=== PATIENT | male | born 1965 | race Hispanic/Latino ===

== ENCOUNTER 2022-06-23 08:01 | Emergency (ER) | payer SELFPAY | END 2022-06-23 10:08 | disposition home or self-care (01) | LOC: ERS 08:01 | DX: S00.83XA Contusion of other part of head, initial encounter (principal); M26.30 Unspecified anomaly of tooth position of fully erupted tooth or teeth; Y04.8XXA Assault by other bodily force, initial encounter | CPT/HCPCS: 70450; 70486 ==

== ENCOUNTER 2022-10-03 10:50 | Inpatient (IN) | payer SELFPAY ==
[2022-10-03 11:34] LABS: #Eosinphils 0.9 thou/uL (0.0-0.7); #Lymphocytes 1.8 thou/uL (1.20-3.40); #Monocytes 0.7 thou/uL (0.11-0.59); #Neutrophils 7.8 thou/uL (1.40-6.50); %Basophils 0.4 % (0.0-1.0); %Eosinophils 8.2 % (0.0-10.0); %Lymphocytes 16.1 % (21.0-51.0); %Monocytes 5.9 % (0.0-10.0); %Neutrophils 69.4 % (42.0-75.0); Hemoglobin 13.3 g/dL (14.0-18.0); Mean Corpuscular HGB CONC 32.6 g/dL (32.0-36.0); Mean Corpuscular Hemoglobin 30.4 pg (27.0-31.0); Mean Corpuscular Volume 93.3 fl (78.0-98.0); Platelet Count 358 10x3/uL (130-400); RBC Distribution Width 11.7 % (11.5-14.5); Red Blood Cell (RBC) Count 4.38 mill/uL (4.70-6.10); White Blood Cell (WBC) Count 11.3 10x3/uL (4.8-10.8)
[2022-10-03 11:54] LABS: ALT (SGPT) 14 U/L (8-55); AST (SGOT) 14 U/L (5-34); Albumin 3.9 g/dL (3.5-5.0); Alkaline Phosphatase 79 U/L (40-110); Anion Gap 14 mmol/L (10-20); BUN (Urea Nitrogen) 15 mg/dL (8.4-25.7); Bilirubin, Total 0.8 mg/dL (0.2-1.2); Calc. Creatinine Clearance 0 mL/min (70-130); Calcium 9.4 mg/dL (7.8-10.44); Carbon Dioxide 24 mmol/L (22-29); Chloride 101 mmol/L (98-107); Estimated GFR 105; Globulin 3.9 g/dL (2.4-3.5); Glucose 184 mg/dL (70-105); Protein, Total 7.8 g/dL (6.0-8.3); Sodium 135 mmol/L (136-145)
[2022-10-03] MEDS ORDERED: Clindamycin/D5W 900 mg/50 ml Premix Bag ONE (13:37)
[2022-10-03 14:01] LABS: Hemoglobin A1c 8.2 % (4.0-6.0)
[2022-10-03] MEDS ORDERED: HumaLOG 300 UNITS/3 ML VIAL SC PRN (14:04)
[2022-10-03] MEDS ORDERED: Dextrose 50% Abboject 50 ML SYRINGE SLOW IVP PRN (14:04)
[2022-10-03] MEDS ORDERED: Dextrose 5% in Water 1,000 ML IV PRN (14:04)
[2022-10-03] MEDS ORDERED: Cefepime 2 GM VIAL ONE (14:19)
[2022-10-03 15:13] VITALS: BMI 26.4
[2022-10-03] MEDS ORDERED: Vancomycin 1.5 GRAM/300 ML BAG 1.5 GM in Premix Bag 1 BAG IVPB SCH (15:15)
[2022-10-03 15:26] LABS: Cardiac Risk 2.8 (Less than 4.5)
[2022-10-03] MEDS ORDERED: Boostrix 0.5 ML (Tdap) VIAL (>/=7 yrs of age) IM ONE (15:26)
[2022-10-03] MEDS ORDERED: PNEUMOC 20-VAL CONJ-DIP CRM/PF 0.5 ML SYRINGE IM ONE (15:28)
[2022-10-03] MEDS: Sodium Chloride 0.9% 1,000 ML IV SCH (19:27)
[2022-10-03] MEDS: Rosuvastatin 20 MG TAB PO SCH (21:20)
[2022-10-03] MEDS: Acetaminophen 325 MG TAB PO PRN (22:26)
[2022-10-04] MEDS: Cefepime 2 GM in Sodium Chloride 0.9% 100 ML IVPB SCH ×2 (02:30→14:50)
[2022-10-04] MEDS: Sodium Chloride 0.9% 1,000 ML IV SCH ×2 (03:00→15:32)
[2022-10-04] MEDS: Vancomycin 1 GM in Premix Bag 1 BAG IVPB SCH ×2 (05:23→17:34)
[2022-10-04 07:53] LABS: #Basophils 0.1 thou/uL (0.0-0.2); #Eosinphils 0.8 thou/uL (0.0-0.7); #Lymphocytes 1.6 thou/uL (1.20-3.40); #Monocytes 0.8 thou/uL (0.11-0.59); #Neutrophils 7.7 thou/uL (1.40-6.50); %Basophils 0.5 % (0.0-1.0); %Eosinophils 7.1 % (0.0-10.0); %Lymphocytes 14.7 % (21.0-51.0); %Monocytes 6.9 % (0.0-10.0); %Neutrophils 70.9 % (42.0-75.0); Hemoglobin 12.5 g/dL (14.0-18.0); Mean Corpuscular HGB CONC 33.1 g/dL (32.0-36.0); Mean Corpuscular Hemoglobin 30.8 pg (27.0-31.0); Mean Corpuscular Volume 93.2 fl (78.0-98.0); Platelet Count 325 10x3/uL (130-400); RBC Distribution Width 11.5 % (11.5-14.5); Red Blood Cell (RBC) Count 4.06 mill/uL (4.70-6.10); White Blood Cell (WBC) Count 10.9 10x3/uL (4.8-10.8)
[2022-10-04 08:06] LABS: Anion Gap 12 mmol/L (10-20); BUN (Urea Nitrogen) 13 mg/dL (8.4-25.7); Calc. Creatinine Clearance 110 mL/min (70-130); Carbon Dioxide 22 mmol/L (22-29); Chloride 104 mmol/L (98-107); Estimated GFR 106; Glucose 161 mg/dL (70-105); Potassium 3.6 mmol/L (3.5-5.1); Sodium 134 mmol/L (136-145)
[2022-10-04] MEDS: metFORMIN 500 MG TAB PO SCH (17:34)
[2022-10-04] MEDS: Rosuvastatin 20 MG TAB PO SCH (20:08)
[2022-10-04] MEDS: Acetaminophen 325 MG TAB PO PRN (20:09)
[2022-10-05] MEDS: Sodium Chloride 0.9% 1,000 ML IV SCH ×2 (01:13→13:57)
[2022-10-05] MEDS: Cefepime 2 GM in Sodium Chloride 0.9% 100 ML IVPB SCH ×2 (01:13→15:40)
[2022-10-05 05:46] LABS: #Basophils 0.1 thou/uL (0.0-0.2); #Eosinphils 0.9 thou/uL (0.0-0.7); #Lymphocytes 2.1 thou/uL (1.20-3.40); #Monocytes 0.7 thou/uL (0.11-0.59); #Neutrophils 7.4 thou/uL (1.40-6.50); %Basophils 0.5 % (0.0-1.0); %Eosinophils 8.1 % (0.0-10.0); %Lymphocytes 18.7 % (21.0-51.0); %Monocytes 5.9 % (0.0-10.0); %Neutrophils 66.8 % (42.0-75.0); Hemoglobin 12.5 g/dL (14.0-18.0); Mean Corpuscular Hemoglobin 30.3 pg (27.0-31.0); Mean Platelet Volume 7.1 fL (7.4-10.4); Platelet Count 308 10x3/uL (130-400); RBC Distribution Width 11.5 % (11.5-14.5); Red Blood Cell (RBC) Count 4.12 mill/uL (4.70-6.10); White Blood Cell (WBC) Count 11.1 10x3/uL (4.8-10.8)
[2022-10-05 06:05] LABS: Vancomycin, Trough 7.5 ug/mL
[2022-10-05 06:09] LABS: Anion Gap 13 mmol/L (10-20); BUN (Urea Nitrogen) 15 mg/dL (8.4-25.7); Calc. Creatinine Clearance 106 mL/min (70-130); Carbon Dioxide 21 mmol/L (22-29); Chloride 106 mmol/L (98-107); Estimated GFR 105; Glucose 140 mg/dL (70-105); Potassium 3.5 mmol/L (3.5-5.1); Sodium 136 mmol/L (136-145)
[2022-10-05] MEDS: Vancomycin 1 GM in Premix Bag 1 BAG IVPB SCH ×2 (06:25→06:47)
[2022-10-05] MEDS ORDERED: Vancomycin 1 GM/200 ML (FROZEN) BAG ONE (10:56)
[2022-10-05] MEDS ORDERED: Vancomycin (BATCH) 1.5 GRAM/300 ML BAG ONE (11:03)
[2022-10-05] MEDS: Vancomycin 1.5 GRAM/300 ML BAG 1.5 GM in Premix Bag 1 BAG IVPB SCH ×2 (11:08→20:07)
[2022-10-05] MEDS ORDERED: fentaNYL PF 100 MCG/2 ML SYRINGE ONE ×2 (11:59→13:18)
[2022-10-05] MEDS ORDERED: PROPOFOL 200 MG/20 ML VIAL ONE (12:05)
[2022-10-05] MEDS ORDERED: Dexamethasone 20 MG/5 ML VIAL ONE (12:05)
[2022-10-05] MEDS ORDERED: ePHEDrine 50 MG/ML VIAL ONE (12:05)
[2022-10-05] MEDS ORDERED: Lidocaine 1% PF 5 ML VIAL ONE (12:05)
[2022-10-05] MEDS ORDERED: Ondansetron PF 4 MG/2 ML Vial ONE (12:05)
[2022-10-05] MEDS ORDERED: Acetaminophen 500 MG TAB PO PRN (12:42)
[2022-10-05] MEDS ORDERED: Acetaminophen 500 MG TAB PO SCH (13:45)
[2022-10-05] MEDS: Losartan 25 MG TAB PO SCH (15:38)
[2022-10-05] MEDS: metFORMIN 500 MG TAB PO SCH (17:40)
[2022-10-05] MEDS: HumaLOG 300 UNITS/3 ML VIAL SC PRN (17:41)
[2022-10-05] MEDS: Rosuvastatin 20 MG TAB PO SCH (20:08)
[2022-10-05] MEDS: traMADol HCl 50 MG TAB PO PRN (20:13)
[2022-10-06] MEDS: Cefepime 2 GM in Sodium Chloride 0.9% 100 ML IVPB SCH ×2 (02:01→14:33)
[2022-10-06] MEDS: HumaLOG 300 UNITS/3 ML VIAL SC PRN ×2 (05:13→12:46)
[2022-10-06 06:53] LABS: #Eosinphils 0.1 thou/uL (0.0-0.7); #Lymphocytes 1.5 thou/uL (1.20-3.40); #Monocytes 0.7 thou/uL (0.11-0.59); #Neutrophils 7.1 thou/uL (1.40-6.50); %Basophils 0.4 % (0.0-1.0); %Eosinophils 1.5 % (0.0-10.0); %Monocytes 6.9 % (0.0-10.0); %Neutrophils 75.2 % (42.0-75.0); Hemoglobin 11.6 g/dL (14.0-18.0); Mean Corpuscular HGB CONC 33.3 g/dL (32.0-36.0); Mean Corpuscular Hemoglobin 30.4 pg (27.0-31.0); Mean Corpuscular Volume 91.3 fl (78.0-98.0); Platelet Count 292 10x3/uL (130-400); RBC Distribution Width 11.3 % (11.5-14.5); White Blood Cell (WBC) Count 9.5 10x3/uL (4.8-10.8)
[2022-10-06 07:17] LABS: Anion Gap 12 mmol/L (10-20); BUN (Urea Nitrogen) 18 mg/dL (8.4-25.7); Calc. Creatinine Clearance 112 mL/min (70-130); Carbon Dioxide 23 mmol/L (22-29); Chloride 105 mmol/L (98-107); Estimated GFR 106; Glucose 128 mg/dL (70-105); Potassium 3.9 mmol/L (3.5-5.1); Sodium 136 mmol/L (136-145)
[2022-10-06] MEDS: Losartan 25 MG TAB PO SCH (08:24)
[2022-10-06] MEDS: Vancomycin 1.5 GRAM/300 ML BAG 1.5 GM in Premix Bag 1 BAG IVPB SCH ×2 (08:24→20:12)
[2022-10-06] MEDS ORDERED: Losartan 25 MG TAB PO SCH (12:00)
[2022-10-06] MEDS: metFORMIN 500 MG TAB PO SCH (17:23)
[2022-10-06 19:53] LABS: Vancomycin, Trough 15.8 ug/mL
[2022-10-06] MEDS: Rosuvastatin 20 MG TAB PO SCH (20:13)
[2022-10-07] MEDS: Cefepime 2 GM in Sodium Chloride 0.9% 100 ML IVPB SCH (01:35)
[2022-10-07 06:58] LABS: #Basophils 0.1 thou/uL (0.0-0.2); #Eosinphils 0.7 thou/uL (0.0-0.7); #Lymphocytes 1.8 thou/uL (1.20-3.40); #Monocytes 0.6 thou/uL (0.11-0.59); #Neutrophils 5.2 thou/uL (1.40-6.50); %Eosinophils 8.5 % (0.0-10.0); %Lymphocytes 21.5 % (21.0-51.0); %Monocytes 6.8 % (0.0-10.0); %Neutrophils 62.2 % (42.0-75.0); Hemoglobin 12.5 g/dL (14.0-18.0); Mean Corpuscular HGB CONC 33.7 g/dL (32.0-36.0); Mean Corpuscular Hemoglobin 30.7 pg (27.0-31.0); Mean Platelet Volume 7.2 fL (7.4-10.4); Platelet Count 325 10x3/uL (130-400); RBC Distribution Width 11.4 % (11.5-14.5); Red Blood Cell (RBC) Count 4.08 mill/uL (4.70-6.10); White Blood Cell (WBC) Count 8.3 10x3/uL (4.8-10.8)
[2022-10-07 07:17] LABS: Anion Gap 13 mmol/L (10-20); BUN (Urea Nitrogen) 13 mg/dL (8.4-25.7); Calc. Creatinine Clearance 103 mL/min (70-130); Calcium 9.5 mg/dL (7.8-10.44); Carbon Dioxide 22 mmol/L (22-29); Chloride 105 mmol/L (98-107); Estimated GFR 104; Glucose 153 mg/dL (70-105); Potassium 3.6 mmol/L (3.5-5.1); Sodium 136 mmol/L (136-145)
[2022-10-07 07:28] VITALS: TEMP 98.6
[2022-10-07] MEDS: Vancomycin 1.5 GRAM/300 ML BAG 1.5 GM in Premix Bag 1 BAG IVPB SCH (08:35)
[2022-10-07] MEDS: metFORMIN 500 MG TAB PO SCH (08:36)
[2022-10-07] MEDS: traMADol HCl 50 MG TAB PO PRN (08:44)
[2022-10-07] MEDS ORDERED: Losartan 25 MG TAB PO SCH ×2 (09:00)
[2022-10-07 11:51] VITALS: BP 162/92
[2022-10-07] MEDS ORDERED: Ciprofloxacin 500 MG TAB PO SCH (20:00)
[2022-10-07] MEDS ORDERED: Sulfameth/Trimethoprim DS 800-160mg TAB PO SCH (21:00)
== END 2022-10-07 12:25 | disposition home or self-care (01) | DRG 617 ==
LOC: ERS 10:50 → T4-B 14:49
PROVIDERS: ADMIT Family Medicine; ATTEND Family Medicine
PROC: 0Y6W0Z1 Detachment at Left 4th Toe, High, Open Approach (ICD-10-PCS; principal; 2022-10-05)
DX: E11.69 Type 2 diabetes mellitus with other specified complication (principal); M86.18 Other acute osteomyelitis, other site; I10 Essential (primary) hypertension; E78.5 Hyperlipidemia, unspecified; Z20.822 Contact with and (suspected) exposure to COVID-19
CPT/HCPCS: 36415; 36416; 80048; 80053; 80061; 80202; 83036; 83605; 84145; 85025; 85652; 86140; 87040; 87070; 87077; 87205; 88305; 88311; 90715; 96361; 96365; 96375; 97139; J0692; J1100; J1815; J2405; J2704; J3370; J3370-JW; J3490; J7050; U0003; U0005